=== PATIENT | female | born 1995 | race Two or more races ===

== ENCOUNTER 2019-06-14 15:54 | Observation (INO) | payer MEDICAID ==
[~2019-06-14] VITALS: Ht 162.6 cm; Wt 97.6 kg
--- NOTE | 2019-06-14 16:29 | NUR ---
PT HAS CO ABDOMINAL PAIN THAT HAS PROGRESSED SINCE 1130 AM. PT DENIES N/V/D. STATES SHE TREID TO INDUCE VOMITING TO SEE IF IT HELPED, IT DID NOT. PT IS TEARFUL AND STATES PAIN IS 10/10. WAITING FOR FURTHER ORDERS
[2019-06-14] MEDS ORDERED: ONDANSETRON 2MG/ML, 2ML ONE ×2 (16:49→19:15)
[2019-06-14] MEDS ORDERED: HYDROmorphone 1 MG/ML, 1ML VIAL ONE (16:49)
[2019-06-14] MEDS ORDERED: ONDANSETRON 2MG/ML, 2ML IVPush ONE (17:00)
[2019-06-14] MEDS ORDERED: HYDROmorphone 2 MG/ML, 1ML IVPush PRN (17:00)
[2019-06-14] MEDS ORDERED: SODIUM CHLORIDE 0.9% 1,000ML IVBOLUS ONE (17:00)
[2019-06-14] MEDS ORDERED: SODIUM CHLORIDE FLUSH 10ML SYR IVF ONE (17:00)
--- NOTE | 2019-06-14 17:02 | NUR ---
MEDICATED PER ORDERS. LABS DRAWN. US AT BEDSIDE. VS STABLE.
[2019-06-14 17:15] LABS: BASOPHILS # (AUTO) 0.04 x10^3/uL (0-0.1); BASOPHILS % (AUTO) 0 % (0-1); EOSINOPHILS % (AUTO) 3 % (1-7); LYMPHOCYTES # (AUTO) 2.24 x10^3/uL (1-3.4); LYMPHOCYTES % (AUTO) 18 % (22-44); MD NO; MEAN CORPUSCULAR HEMOGLOBIN 28.5 pg (27.0-34.8); MEAN CORPUSCULAR HGB CONC 32.7 g/dL (32.4-35.8); MEAN PLATELET VOLUME 8.9 fL (7.4-10.4); MONOCYTES # (AUTO) 0.49 x10^3/uL (0.2-0.8); MONOCYTES % (AUTO) 4 % (2-9); NEUTROPHILS # (AUTO) 9.28 x10^3/uL (1.8-6.8); NEUTROPHILS % (AUTO) 75 % (42-75); PLATELET COUNT 315 x10^3/uL (130-400); RED BLOOD COUNT 4.72 x10^6/uL (3.82-5.3); RED CELL DISTRIBUTION WIDTH 13.6 % (9.6-15.2)
[2019-06-14 17:24] LABS: ALANINE AMINOTRANSFERASE 23 U/L (12-78); ALBUMIN 3.8 g/dL (3.4-5.0); ANION GAP 6 mmol/L (5-15); CALCIUM 8.9 mg/dL (8.5-10.1); CHLORIDE 107 mmol/L (98-107); CREATININE 0.67 mg/dL (0.55-1.02)
[2019-06-14 17:28] LABS: ALKALINE PHOSPHATASE 80 U/L (45-117); BILIRUBIN,TOTAL 0.6 mg/dL (0.2-1.0); TOTAL PROTEIN 8.5 g/dL (6.4-8.2)
--- NOTE | 2019-06-14 17:59 | NUR ---
AT BEDSIDE DISCUSSING POC. PT WILL BE ADMITTED FOR SURGERY.
[2019-06-14] MEDS ORDERED: CEFOTETAN PMX 1GM/50ML 50 ML IV ONE (18:00)
[2019-06-14 18:07] LABS: MICROSCOPIC NOT IND
[2019-06-14 18:13] LABS: CULTURE INDICATED? NO
[2019-06-14] MEDS ORDERED: BUPIVACAINE/PF 0.5% ONE (18:14)
[2019-06-14] MEDS ORDERED: EPINEPHRINE 1 MG/ML, 1ML ONE (18:14)
[2019-06-14] MEDS ORDERED: MIDAZOLAM 1 MG/ML, 2ML ONE (18:32)
[2019-06-14] MEDS ORDERED: FENTANYL PF 250 MCG/5ML ONE (18:32)
[2019-06-14] MEDS ORDERED: KETOROLAC 30 MG/1 ML ONE (18:35)
[2019-06-14] MEDS ORDERED: CEFOTETAN PMX 2GM/50ML 50 ML ONE (18:36)
[2019-06-14] MEDS ORDERED: MORPHINE SULFATE 4 MG/ML, 1ML IVPush PRN (19:00)
[2019-06-14] MEDS ORDERED: HALOPERIDOL 5 MG/ML IV PRN (19:00)
[2019-06-14] MEDS ORDERED: ACETAMINOPHEN 325 MG TABLET PO PRN (19:00)
[2019-06-14] MEDS ORDERED: MEPERIDINE/PF 25MG/ML,1ML IVPush PRN (19:00)
[2019-06-14] MEDS ORDERED: PROMETHAZINE 25 MG/ML, 1ML IV PRN (19:00)
[2019-06-14] MEDS ORDERED: OXYcodone 5 MG/5 ML ORAL.SOL UDC PO PRN ×2 (19:00→22:30)
[2019-06-14] MEDS ORDERED: HYDROmorphone 1 MG/ML, 1ML VIAL IVPush PRN (19:00)
[2019-06-14] MEDS ORDERED: GLYCOPYRROLATE 0.2MG/1ML, 5ML ONE (19:15)
[2019-06-14] MEDS ORDERED: DEXAMETHASONE 4 MG/ML, 1ML ONE (19:15)
[2019-06-14] MEDS ORDERED: CEFAZOLIN 1,000 MG ONE (19:15)
[2019-06-14] MEDS ORDERED: PROPOFOL 10 MG/ML, 20ML ONE (19:15)
[2019-06-14] MEDS ORDERED: NEOSTIGMINE 1 MG/ML, 10ML ONE (19:15)
[2019-06-14] MEDS ORDERED: ROCURONIUM 10MG/ML,5ML ONE (19:15)
[2019-06-14] MEDS ORDERED: FENTANYL PF 100 MCG/2ML ONE ×2 (19:16→20:36)
[2019-06-14] MEDS ORDERED: ACETAMINOPHEN 650 MG/20.3 ML UDC ONE (20:33)
[2019-06-14] MEDS ORDERED: OXYcodone 5 MG/5 ML ORAL.SOL UDC ONE (20:33)
[2019-06-14] MEDS: FENTANYL PF 100 MCG/2ML IV PRN ×2 (20:36→20:42)
[2019-06-14] MEDS ORDERED: PROMETHAZINE 25 MG/ML, 1ML ONE (20:49)
[2019-06-14] MEDS ORDERED: ONDANSETRON 2MG/ML, 2ML IVPush PRN (22:30)
[2019-06-14] MEDS ORDERED: LACTATED RINGERS 1,000 ML IV SCH (22:30)
[2019-06-15 00:25] VITALS: BP 95/55
[2019-06-15] MEDS ORDERED: ACET-1600 PO (00:48)
[2019-06-15] MEDS ORDERED: IBUP-1223 PO (00:49)
[2019-06-15] MEDS ORDERED: OXYC5CAP2 PO (00:51)
[2019-06-15] MEDS ORDERED: KETOROLAC 30 MG/1 ML IV PRN (01:30)
[2019-06-15] MEDS: ACETAMINOPHEN 500 MG TABLET PO SCH ×2 (02:23→08:11)
[2019-06-15 03:53] VITALS: BP 111/71
[2019-06-15 05:29] LABS: BASOPHILS % (AUTO) 0 % (0-1); EOSINOPHILS # (AUTO) 0.12 x10^3/uL (0-0.4); EOSINOPHILS % (AUTO) 1 % (1-7); LYMPHOCYTES # (AUTO) 0.73 x10^3/uL (1-3.4); LYMPHOCYTES % (AUTO) 9 % (22-44); MD NO; MEAN CORPUSCULAR HEMOGLOBIN 28.4 pg (27.0-34.8); MEAN CORPUSCULAR HGB CONC 32.6 g/dL (32.4-35.8); MEAN CORPUSCULAR VOLUME 87.2 fL (80-100); MEAN PLATELET VOLUME 9.4 fL (7.4-10.4); MONOCYTES # (AUTO) 0.12 x10^3/uL (0.2-0.8); MONOCYTES % (AUTO) 1 % (2-9); NEUTROPHILS # (AUTO) 7.62 x10^3/uL (1.8-6.8); NEUTROPHILS % (AUTO) 89 % (42-75); PLATELET COUNT 260 x10^3/uL (130-400); RED BLOOD COUNT 4.22 x10^6/uL (3.82-5.3); RED CELL DISTRIBUTION WIDTH 14.1 % (9.6-15.2)
[2019-06-15 05:39] LABS: ALBUMIN 3.1 g/dL (3.4-5.0); ANION GAP 7 mmol/L (5-15); CALCIUM 8.4 mg/dL (8.5-10.1); CHLORIDE 106 mmol/L (98-107)
[2019-06-15 05:43] LABS: ALANINE AMINOTRANSFERASE 176 U/L (12-78); ALKALINE PHOSPHATASE 101 U/L (45-117); BILIRUBIN,TOTAL 1.3 mg/dL (0.2-1.0); CREATININE 0.78 mg/dL (0.55-1.02); TOTAL PROTEIN 7.4 g/dL (6.4-8.2)
[2019-06-15] MEDS ORDERED: FLU VACC QS2019-20 36MOS UP/PF 0.5 ML IM-VACC ONE (06:30)
[2019-06-15 07:16] VITALS: BP 111/72
[2019-06-15 10:40] VITALS: BP 107/69
== END 2019-06-15 11:01 | disposition home or self-care (01) ==
LOC: ED 17:54 → INTOOBSV 17:57 → EDIP 17:57 → 4NE 20:58
PROVIDERS: ADMIT Surgery; ATTEND Surgery
DX: K80.00 Calculus of gallbladder with acute cholecystitis without obstruction (principal); J45.909 Unspecified asthma, uncomplicated; F17.210 Nicotine dependence, cigarettes, uncomplicated; Z79.899 Other long term (current) drug therapy; Z23 Encounter for immunization
CPT/HCPCS: 36415; 47562; 76700; 80053; 81003; 83690; 84703; 85025; 88304; 90471; 90686; 93005; 96361; 96374; 96375; 99284; G0378; J0171; J0690; J1100; J1170; J1885; J2250; J2405; J2550; J2704; J2710; J3010; J3490; J7030; J7120; S0020

== ENCOUNTER 2020-08-03 16:16 | Emergency (ER) | payer MEDICAID, OTHER ==
[~2020-08-03] VITALS: Ht 162.6 cm; Wt 86.1 kg
[~2020-08-03 16:16] MED LIST: ACET-1600 PO; IBUP-1223 PO; OXYC5CAP2 PO
--- NOTE | 2020-08-03 17:02 | NUR ---
INTERNAL SPECIALIST: PT AMBULATORY TO ROOM FROM LOBBY
--- NOTE | 2020-08-03 17:18 | NUR ---
PT IN GOWN IN [facility]. PT HISTORY AND ASSESSMENT OBTAINED AT THIS TIME. PT EDUCATED ON ER PROCESS AND POC AND VERBALIZES UNDERSTANDING. CALL LIGHT IS WITHIN REACH. AWAITING ERP FOR FURTHER ORDERS AT THIS TIME.
[2020-08-03] MEDS ORDERED: KETOROLAC 30 MG/1 ML ONE (17:25)
[2020-08-03] MEDS ORDERED: DIAZEPAM 5 MG TABLET ONE (17:25)
[2020-08-03] MEDS ORDERED: DIAZEPAM 5 MG TABLET PO ONE (17:30)
[2020-08-03] MEDS ORDERED: KETOROLAC 30 MG/1 ML IM ONE (17:30)
--- NOTE | 2020-08-03 17:37 | NUR ---
PT MEDICATED PER MAR FOR PAIN AT THIS TIME.
--- NOTE | 2020-08-03 18:21 | NUR ---
PT URINE COLLECTED AND TUBED TO LAB AT THIS TIME. PT BACK IN [facility]. VSS AND UPDATED IN EMR.
--- NOTE | 2020-08-03 18:51 | NUR ---
Note danielaone in EDM - 08/03/20 at 1853 by JULIO C bedside report from Neal DURHAM, pt care transferred at this time. pt nad, resting on laya aguilar erp at bs at this time. pt bed in [facility], call light on lap, rails engaged, tm.
[2020-08-03 18:53] LABS: MICROSCOPIC INDICATED
--- NOTE | 2020-08-03 18:53 | NUR ---
previous note on incorrect pt. bedside report from Neal DURHAM, pt care transferred at this time. pt nad, resting on gurney, pt bed in lowest, call light on lap, rails engaged, denies additional needs at this time. wctm. waiting for ua and imaging at this time.
[2020-08-03 19:38] VITALS: BP 136/59
--- NOTE | 2020-08-03 19:40 | NUR ---
Patient given discharge instructions and they have confirmed that they understand the instructions. Patient ambulatory with steady gait. NAD, DENIES ADDITIONAL QUESTIONS OR NEEDS AT THIS TIME. VERBALIZES THAT IS GIVING HER A RIDE HOME, NO PERSONAL BELONGINGS LEFT IN ROOM AFTER DC.
== END 2020-08-03 19:56 | disposition home or self-care (01) ==
LOC: ED 17:53
DX: S39.012A Strain of muscle, fascia and tendon of lower back, initial encounter (principal); M54.41 Lumbago with sciatica, right side; J45.909 Unspecified asthma, uncomplicated; Z90.89 Acquired absence of other organs; Z87.891 Personal history of nicotine dependence; X58.XXXA Exposure to other specified factors, initial encounter; Y93.89 Activity, other specified; Y92.89 Other specified places as the place of occurrence of the external cause; Y99.8 Other external cause status
CPT/HCPCS: 81001; 81025; 87086; 96372; 99283; J1885